=== PATIENT | female | born 1980 | race Caucasian/White ===

== ENCOUNTER 2017-10-10 22:27 | Inpatient (IN) ==
[2017-10-10 23:11] LABS: Basophils # 0.1 K/mcL (0.0-0.2); Basophils % 0.6 %; Eosinophils # 0.9 K/mcL (0.0-0.6); Eosinophils % 6.2 %; Hematocrit 47.1 % (35.3-44.9); Hemoglobin 15.9 g/dL (11.5-15.4); Immature Granulocytes % 0.2 % (0-4); Lymphocytes # 4.2 K/mcL (0.6-4.6); Lymphocytes % 30.1 %; Mean Corpuscular HGB Conc 33.8 g/dL (31.6-35.5); Mean Corpuscular Hemoglobin 30.8 pg (28.0-33.3); Mean Corpuscular Volume 91.1 fL (83.0-100.0); Mean Platelet Volume 9.9 fL (9.4-12.4); Monocytes # 0.8 K/mcL (0.0-1.3); Monocytes % 5.6 %; Platelet Count 495 K/mcL (140-400); Red Blood Count 5.17 M/mcL (3.82-4.97); Red Cell Distribution Width 14.2 % (11.5-14.5); Segmented Neutrophils % 57.3 %
[2017-10-10 23:11] LABS: Bilirubin,Urine Negative (Negative); Blood,Urine Negative (Negative); Clarity,Urine Cloudy (Clear); Color,Urine Yellow (Yellow); Glucose,Urine (UA) Normal (Normal); Ketones,Urine Negative (Negative); Leukocyte Esterase,Urine Trace (Negative); Nitrite,Urine Negative (Negative); Protein,Urine Trace mg/dL (Neg-Trace); Specific Gravity,Urine 1.025 (1.010-1.025); Urobilinogen,Urine Normal (Normal)
[2017-10-10 23:15] LABS: Bacteria,Urine None Seen per hpf (None-Few); Squamous Epithelial Cell,Urine Many per lpf (None-Few)
--- NOTE | 2017-10-10 23:16 | Emergency Department Note ---
Disposition Clinical Impression: Homicidal ideation, Amphetamine abuse, Suicidal ideation Disposition: Admitted As Inpatient Condition: Good General Adult HPI - General Chief complaint: ED Psychiatric Symptoms Stated complaint: SI/HI Time Seen by Provider: 10/10/17 22:42 Source: patient Limitations: no limitations Nursing Notes Reviewed: Yes Vital Signs Reviewed: Yes - History of Present Illness Pain Scale: 0 - Related Data Home Medications Medication Instructions Recorded Confirmed Citalopram Hydrobromide [Celexa] 40 mg PO DAILY 10/10/17 10/11/17 Previous Rx's Medication Instructions Recorded Amoxicillin [Amoxil] 750 mg PO Q8H 14 Days #7 tab.chew 10/14/17 Benzocaine/Menthol Gustavo [Cepacol 1 each PO Q2H PRN lozenge 10/14/17 Sore Throat Lozenge] Bisacodyl [Dulcolax] 10 mg PO DAILY PRN tablet 10/14/17 Divalproex (12 HR) [Depakote (12 250 mg PO BID tablet. 10/14/17 HR)] Loperamide [Imodium] 2 mg PO Q2HR PRN capsule 10/14/17 Loperamide [Imodium] 4 mg PO ONCE PRN capsule 10/14/17 MOM Conc [MILK OF MAGNESIA conc] 10 ml PO HS PRN ud.liq 10/14/17 Mag Hydrox/Al Hydrox/Simeth 30 ml PO Q4H PRN udc 10/14/17 [Maalox] Multivit/Ca/Min/Fe/FA [Thera M 1 tab PO DAILY tablet 10/14/17 Plus] Venlafaxine XR (24 HR) [Effexor XR] 75 mg PO DAILY cap.er.24h 10/14/17 hydrOXYzine pamoate [HydrOXYzine 25 mg PO TID PRN capsule 10/14/17 Pamoate] traZODone [TraZODone] 50 mg PO HS PRN tablet 10/14/17 Allergies Allergy/AdvReac Type Severity Reaction Status Date / Time No Known Allergies Allergy Verified 10/11/17 10:36 All systems ED: reviewed and negative except as stated. Past Medical History - Past Medical History Medical history: Reports: no medical history Psychiatric history: Reports: panic disorder - Social History Smoking Status: Current some day smoker Smokeless Tobacco Status: No Alcohol use: Reports: rarely Drug use: Reports: methamphetamine Physical Exam - General Limitations: no limitations General appearance: alert, in no apparent distress Course Vital Signs Temperature 98.7 F 10/10/17 22:29 Pulse Rate 83 10/10/17 22:29 Respiratory Rate 18 10/10/17 22:29 Blood Pressure 172/99 10/10/17 22:29 O2 Sat by Pulse Oximetry 97 10/10/17 22:29 Temperature 98.7 F 10/14/17 09:00 Pulse Rate 107 10/14/17 09:00 Respiratory Rate 16 10/14/17 09:00 Blood Pressure 114/83 10/14/17 09:00 O2 Sat by Pulse Oximetry 97 10/10/17 22:29 Oxygen Delivery Oxygen Delivery Room Air Medical Decision Making - Lab Data Result diagrams: 10/10/17 23:01 10/10/17 23:01 Lab Results 10/10/17 10/10/17 10/10/17 Range/Units 22:57 22:57 22:57 WBC (4.3-11.1) K/mcL RBC (3.82-4.97) M/mcL Hgb (11.5-15.4) g/dL Hct (35.3-44.9) % MCV (83.0-100.0) fL MCH (28.0-33.3) pg MCHC (31.6-35.5) g/dL RDW (11.5-14.5) % Plt Count (140-400) K/mcL MPV (9.4-12.4) fL Immature Gran % (0-4) % Seg Neutrophils % % Lymphocytes % % Monocytes % % Eosinophils % % Basophils % % Neutrophils # (1.6-8.9) K/mcL Lymphocytes # (0.6-4.6) K/mcL Monocytes # (0.0-1.3) K/mcL Eosinophils # (0.0-0.6) K/mcL Basophils # (0.0-0.2) K/mcL Sodium (136-145) mEq/L Potassium (3.5-5.1) mEq/L Chloride (98-107) mEq/L Carbon Dioxide (23-29) mEq/L BUN (6-20) mg/dL Creatinine (0.60-1.20) mg/dL Est GFR ( Amer) (> 60) Est GFR (Non-Af Amer) (> 60) BUN/Creatinine Ratio (6-26) Glucose (70-105) mg/dL Calculated Osmolality (280-300) Calcium (8.6-10.3) mg/dL Urine Color Yellow (Yellow) Urine Clarity Cloudy A (Clear) Urine pH 7.0 (5.0-8.0) pH Units Ur Specific [place] 1.025 (1.010-1.025) Urine Protein Trace (Neg-Trace) mg/dL Urine Glucose (UA) Normal (Normal) mg/dL Urine Ketones Negative (Negative) mg/dL Urine Blood Negative (Negative) Urine Nitrite Negative (Negative) Urine Bilirubin Negative (Negative) Urine Urobilinogen Normal (Normal) mg/dL Ur Leukocyte Esterase Trace H (Negative) Urine Microscopic RBC 0-3 (0-3) per hpf Urine Microscopic WBC 3-5 H (0-3) per hpf Ur Squamous Epith Cells Many H (None-Few) per lpf Urine Bacteria None Seen (None-Few) per hpf Ur Culture Indicated? NO. (NO) Urine Test Negative (Negative) Salicylates (15.0-30.0) mg/dL Urine Opiates Screen Negative (Bdmqoa=801) ng/mL Acetaminophen (10-20) mcg/mL Ur Barbiturates Screen Negative (Oaygxc=369) ng/mL Ur Phencyclidine Scrn Negative (Cutoff=25) ng/mL Ur Amphetamines Screen Positive H (Dgrwkl=4521) ng/mL U Benzodiazepines Scrn Negative (Naylao=325) ng/mL Urine Cocaine Screen Negative (Cutoff= 300) ng/mL U Marijuana (THC) Screen Negative (Cutoff = 50) ng/mL Ethyl Alcohol (Less than 10) mg/dL 10/10/17 10/10/17 Range/Units 23:01 23:01 WBC 13.9 H (4.3-11.1) K/mcL RBC 5.17 H (3.82-4.97) M/mcL Hgb 15.9 H (11.5-15.4) g/dL Hct 47.1 H (35.3-44.9) % MCV 91.1 (83.0-100.0) fL MCH 30.8 (28.0-33.3) pg MCHC 33.8 (31.6-35.5) g/dL RDW 14.2 (11.5-14.5) % Plt Count 495 H (140-400) K/mcL MPV 9.9 (9.4-12.4) fL Immature Gran % 0.2 (0-4) % Seg Neutrophils % 57.3 % Lymphocytes % 30.1 % Monocytes % 5.6 % Eosinophils % 6.2 % Basophils % 0.6 % Neutrophils # 8.0 (1.6-8.9) K/mcL Lymphocytes # 4.2 (0.6-4.6) K/mcL Monocytes # 0.8 (0.0-1.3) K/mcL Eosinophils # 0.9 H (0.0-0.6) K/mcL Basophils # 0.1 (0.0-0.2) K/mcL Sodium 135 L (136-145) mEq/L Potassium 4.1 (3.5-5.1) mEq/L Chloride 102 (98-107) mEq/L Carbon Dioxide 26 (23-29) mEq/L BUN 14 (6-20) mg/dL Creatinine 0.89 (0.60-1.20) mg/dL Est GFR ( Amer) > 60 (> 60) Est GFR (Non-Af Amer) > 60 (> 60) BUN/Creatinine Ratio 16 (6-26) Glucose 103 (70-105) mg/dL Calculated Osmolality 281 (280-300) Calcium 9.7 (8.6-10.3) mg/dL Urine Color (Yellow) Urine Clarity (Clear) Urine pH (5.0-8.0) pH Units Ur Specific [place] (1.010-1.025) Urine Protein (Neg-Trace) mg/dL Urine Glucose (UA) (Normal) mg/dL Urine Ketones (Negative) mg/dL Urine Blood (Negative) Urine Nitrite (Negative) Urine Bilirubin (Negative) Urine Urobilinogen (Normal) mg/dL Ur Leukocyte Esterase (Negative) Urine Microscopic RBC (0-3) per hpf Urine Microscopic WBC (0-3) per hpf Ur Squamous Epith Cells (None-Few) per lpf Urine Bacteria (None-Few) per hpf Ur Culture Indicated? (NO) Urine Test (Negative) Salicylates < 2.5 L (15.0-30.0) mg/dL Urine Opiates Screen (Dlwfda=144) ng/mL Acetaminophen < 10 L (10-20) mcg/mL Ur Barbiturates Screen (Wjhkqs=557) ng/mL Ur Phencyclidine Scrn (Cutoff=25) ng/mL Ur Amphetamines Screen (Ehyxod=4034) ng/mL U Benzodiazepines Scrn (Pqywzu=206) ng/mL Urine Cocaine Screen (Cutoff= 300) ng/mL U Marijuana (THC) Screen (Cutoff = 50) ng/mL Ethyl Alcohol < 10 (Less than 10) mg/dL Attestation Statement - Attestation Attestation: I examined this patient and my medical decision-making was reviewed with the Resident Physician. I agree with the documented findings, disposition and treatment plan as described except to the extent set forth below. Patient has plans for murdering a family member and then killing herself. We will obtain 18 consult after medical clearance.
[2017-10-10 23:19] LABS: Amphetamine Screen,Urine Positive ng/mL (Cutoff=1000); Barbiturate Screen,Urine Negative ng/mL (Cutoff=200); Benzodiazepines Screen,Urine Negative ng/mL (Cutoff=200); Cannabinoid Screen,Urine Negative ng/mL (Cutoff = 50); Cocaine Screen,Urine Negative ng/mL (Cutoff= 300); Opiate Screen,Urine Negative ng/mL (Cutoff=300); Phencyclidine Screen,Urine Negative ng/mL (Cutoff=25)
[2017-10-10 23:23] LABS: RBC,Urine 0-3 per hpf (0-3)
[2017-10-10] MEDS ORDERED: clonazePAM 0.5 MG TABLET PO ONE (23:25)
[2017-10-10 23:39] LABS: Acetaminophen < 10 mcg/mL (10-20); BUN/Creatinine Ratio 16 (6-26); Blood Urea Nitrogen 14 mg/dL (6-20); Calcium 9.7 mg/dL (8.6-10.3); Carbon Dioxide 26 mEq/L (23-29); Chloride 102 mEq/L (98-107); Ethanol < 10 mg/dL (Less than 10); Glucose 103 mg/dL (70-105); Osmolality,Calculated 281 (280-300); Potassium 4.1 mEq/L (3.5-5.1); Salicylate < 2.5 mg/dL (15.0-30.0); Sodium 135 mEq/L (136-145); eGFR For African Americans > 60 (> 60); eGFR For Non-African Americans > 60 (> 60)
[2017-10-10] MEDS ORDERED: Haloperidol Lactate 5 MG/ML VIAL IM ONE (23:56)
--- NOTE | 2017-10-11 00:24 | Emergency Department Note ---
Disposition Clinical Impression: Suicidal ideation, Homicidal ideation, Amphetamine abuse Disposition: Still a Patient Condition: Serious Referrals: NONE,PCP [Primary Care Provider] - Forms: ED Satisfaction Letter Time of Disposition: 00:25 Psych HPI - General Chief Complaint: ED Psychiatric Symptoms Stated Complaint: SI/HI Time Seen by Provider: 10/10/17 22:42 Source: patient Nursing Notes Reviewed: Yes Vital Signs Reviewed: Yes - History of Present Illness HPI Narrative: Mrs. Yee, 37-year-old female, presents from home with stepmother bedside for evaluation and mental health help. She admits to homicidality-killing her biological mother. She admits to suicidality-killing herself. Her plan is to obtain a firearm and then perform a murder suicide. She admits to taking ice today. No other illicit substance use. No EtOH. She has no other complaints. - Related Data Home Medications Medication Instructions Recorded Confirmed Citalopram Hydrobromide [Celexa] 40 mg PO DAILY 10/10/17 10/10/17 clonazePAM [Klonopin] 1 mg PO TID PRN 10/10/17 10/10/17 Allergies Allergy/AdvReac Type Severity Reaction Status Date / Time No Known Allergies Allergy Verified 10/10/17 22:32 All systems ED: reviewed and negative except as stated. Review of Systems: As Per HPI Past Medical History - Past Medical History Medical history: Reports: no medical history Psychiatric history: Reports: panic disorder - Social History Smoking Status: Current some day smoker Smokeless Tobacco Status: No Alcohol use: Reports: rarely Drug use: Reports: methamphetamine Physical Exam Vital Signs Reviewed General: Patient is alert, oriented, and in acute distress-she is tearful, rushed speech, has a worried look about her face. Head: atraumatic, normocephalic Eye: normal appearance, PERRL, EOMI, no scleral icterus, no conjunctival injection ENT: mucous membranes moist, normal external ear exam Neck: normal inspection, trachea midline, full ROM Chest: normal inspection, symmetric chest rise Respiratory: Good respiratory effort. Bilateral breath sounds are clear without wheezing, crackles, or rhonchi. Cardiovascular: Regular rate and rhythm. No clicks, rubs, gallops, or murmors. Normal heart sounds. Abdomen: Bowel sounds present normoactive x-4 quadrants. Abdomen is soft, nondistended, and nontender. No guarding or rebound. No organomegaly noted. Musculoskeletal: Spontaneously moving all extremities. Skin: warm, dry, intact. Neuro: Alert and oriented x4. Sensation light touch intact. Psych: Patient's affect is appropriate for situation. - General Limitations: no limitations General appearance: alert, in no apparent distress Course Course Narrative: Patient admits to suicidality and homicidality. She has a plan. She is a history of cutting. Patient reports that she was seen and evaluated by outside emergency department in the last several days and was discharged home; "it is nothing." She is worried about herself and is seeking help. She notes a 30 pound unintentional weight loss in the last several weeks but is unable to provide further clarification. Patient is medically cleared for evaluation by mental health services. Vital Signs Temperature 98.7 F 10/10/17 22:29 Pulse Rate 83 10/10/17 22:29 Respiratory Rate 18 10/10/17 22:29 Blood Pressure 172/99 10/10/17 22:29 O2 Sat by Pulse Oximetry 97 10/10/17 22:29 Temperature 98.7 F 10/10/17 22:29 Pulse Rate 83 10/10/17 22:29 Respiratory Rate 18 10/10/17 22:29 Blood Pressure 172/99 10/10/17 22:29 O2 Sat by Pulse Oximetry 97 10/10/17 22:29 Oxygen Delivery Oxygen Delivery Room Air Psych - Lab Data Result diagrams: 10/10/17 23:01 10/10/17 23:01 Lab Results 10/10/17 10/10/17 10/10/17 Range/Units 22:57 22:57 22:57 WBC (4.3-11.1) K/mcL RBC (3.82-4.97) M/mcL Hgb (11.5-15.4) g/dL Hct (35.3-44.9) % MCV (83.0-100.0) fL MCH (28.0-33.3) pg MCHC (31.6-35.5) g/dL RDW (11.5-14.5) % Plt Count (140-400) K/mcL MPV (9.4-12.4) fL Immature Gran % (0-4) % Seg Neutrophils % % Lymphocytes % % Monocytes % % Eosinophils % % Basophils % % Neutrophils # (1.6-8.9) K/mcL Lymphocytes # (0.6-4.6) K/mcL Monocytes # (0.0-1.3) K/mcL Eosinophils # (0.0-0.6) K/mcL Basophils # (0.0-0.2) K/mcL Sodium (136-145) mEq/L Potassium (3.5-5.1) mEq/L Chloride (98-107) mEq/L Carbon Dioxide (23-29) mEq/L BUN (6-20) mg/dL Creatinine (0.60-1.20) mg/dL Est GFR ( Amer) (> 60) Est GFR (Non-Af Amer) (> 60) BUN/Creatinine Ratio (6-26) Glucose (70-105) mg/dL Calculated Osmolality (280-300) Calcium (8.6-10.3) mg/dL Urine Color Yellow (Yellow) Urine Clarity Cloudy A (Clear) Urine pH 7.0 (5.0-8.0) pH Units Ur Specific [place] 1.025 (1.010-1.025) Urine Protein Trace (Neg-Trace) mg/dL Urine Glucose (UA) Normal (Normal) mg/dL Urine Ketones Negative (Negative) mg/dL Urine Blood Negative (Negative) Urine Nitrite Negative (Negative) Urine Bilirubin Negative (Negative) Urine Urobilinogen Normal (Normal) mg/dL Ur Leukocyte Esterase Trace H (Negative) Urine Microscopic RBC 0-3 (0-3) per hpf Urine Microscopic WBC 3-5 H (0-3) per hpf Ur Squamous Epith Cells Many H (None-Few) per lpf Urine Bacteria None Seen (None-Few) per hpf Ur Culture Indicated? NO. (NO) Urine Test Negative (Negative) Salicylates (15.0-30.0) mg/dL Urine Opiates Screen Negative (Irtjoc=374) ng/mL Acetaminophen (10-20) mcg/mL Ur Barbiturates Screen Negative (Vhzrvq=664) ng/mL Ur Phencyclidine Scrn Negative (Cutoff=25) ng/mL Ur Amphetamines Screen Positive H (Hfqpep=7211) ng/mL U Benzodiazepines Scrn Negative (Fgxjsh=696) ng/mL Urine Cocaine Screen Negative (Cutoff= 300) ng/mL U Marijuana (THC) Screen Negative (Cutoff = 50) ng/mL Ethyl Alcohol (Less than 10) mg/dL 10/10/17 10/10/17 Range/Units 23:01 23:01 WBC 13.9 H (4.3-11.1) K/mcL RBC 5.17 H (3.82-4.97) M/mcL Hgb 15.9 H (11.5-15.4) g/dL Hct 47.1 H (35.3-44.9) % MCV 91.1 (83.0-100.0) fL MCH 30.8 (28.0-33.3) pg MCHC 33.8 (31.6-35.5) g/dL RDW 14.2 (11.5-14.5) % Plt Count 495 H (140-400) K/mcL MPV 9.9 (9.4-12.4) fL Immature Gran % 0.2 (0-4) % Seg Neutrophils % 57.3 % Lymphocytes % 30.1 % Monocytes % 5.6 % Eosinophils % 6.2 % Basophils % 0.6 % Neutrophils # 8.0 (1.6-8.9) K/mcL Lymphocytes # 4.2 (0.6-4.6) K/mcL Monocytes # 0.8 (0.0-1.3) K/mcL Eosinophils # 0.9 H (0.0-0.6) K/mcL Basophils # 0.1 (0.0-0.2) K/mcL Sodium 135 L (136-145) mEq/L Potassium 4.1 (3.5-5.1) mEq/L Chloride 102 (98-107) mEq/L Carbon Dioxide 26 (23-29) mEq/L BUN 14 (6-20) mg/dL Creatinine 0.89 (0.60-1.20) mg/dL Est GFR ( Amer) > 60 (> 60) Est GFR (Non-Af Amer) > 60 (> 60) BUN/Creatinine Ratio 16 (6-26) Glucose 103 (70-105) mg/dL Calculated Osmolality 281 (280-300) Calcium 9.7 (8.6-10.3) mg/dL Urine Color (Yellow) Urine Clarity (Clear) Urine pH (5.0-8.0) pH Units Ur Specific [place] (1.010-1.025) Urine Protein (Neg-Trace) mg/dL Urine Glucose (UA) (Normal) mg/dL Urine Ketones (Negative) mg/dL Urine Blood (Negative) Urine Nitrite (Negative) Urine Bilirubin (Negative) Urine Urobilinogen (Normal) mg/dL Ur Leukocyte Esterase (Negative) Urine Microscopic RBC (0-3) per hpf Urine Microscopic WBC (0-3) per hpf Ur Squamous Epith Cells (None-Few) per lpf Urine Bacteria (None-Few) per hpf Ur Culture Indicated? (NO) Urine Test (Negative) Salicylates < 2.5 L (15.0-30.0) mg/dL Urine Opiates Screen (Xtstsr=922) ng/mL Acetaminophen < 10 L (10-20) mcg/mL Ur Barbiturates Screen (Sasgwd=062) ng/mL Ur Phencyclidine Scrn (Cutoff=25) ng/mL Ur Amphetamines Screen (Wckwfr=6187) ng/mL U Benzodiazepines Scrn (Elvmhx=019) ng/mL Urine Cocaine Screen (Cutoff= 300) ng/mL U Marijuana (THC) Screen (Cutoff = 50) ng/mL Ethyl Alcohol < 10 (Less than 10) mg/dL Psychiatric Medical Clearance - Medical Clearance Checklist Medical History: No Social History Section defined Current Vitals: Last Vital Signs Temp 98.7 F 10/10/17 22:29 Pulse 83 10/10/17 22:29 Resp 18 10/10/17 22:29 BP 172/99 10/10/17 22:29 Pulse Ox 97 10/10/17 22:29 Psychiatric Lab Panel: Drug Levels and Toxicity 10/10/17 10/10/17 22:57 23:01 Urine Opiates Screen Negative Acetaminophen < 10 L Ur Barbiturates Screen Negative Ur Phencyclidine Scrn Negative Ur Amphetamines Screen Positive H U Benzodiazepines Scrn Negative Urine Cocaine Screen Negative U Marijuana (THC) Screen Negative Ethyl Alcohol < 10 Abnormal Labs: Abnormal lab results WBC 13.9 K/mcL (4.3-11.1) H 10/10/17 23:01 RBC 5.17 M/mcL (3.82-4.97) H 10/10/17 23:01 Hgb 15.9 g/dL (11.5-15.4) H 10/10/17 23:01 Hct 47.1 % (35.3-44.9) H 10/10/17 23:01 Plt Count 495 K/mcL (140-400) H 10/10/17 23:01 Eosinophils # 0.9 K/mcL (0.0-0.6) H 10/10/17 23:01 Sodium 135 mEq/L (136-145) L 10/10/17 23:01 Urine Clarity Cloudy (Clear) A 10/10/17 22:57 Ur Leukocyte Esterase Trace (Negative) H 10/10/17 22:57 Urine Microscopic WBC 3-5 per hpf (0-3) H 10/10/17 22:57 Ur Squamous Epith Cells Many per lpf (None-Few) H 10/10/17 22:57 Salicylates < 2.5 mg/dL (15.0-30.0) L 10/10/17 23:01 Acetaminophen < 10 mcg/mL (10-20) L 10/10/17 23:01 Ur Amphetamines Screen Positive ng/mL (Penrcj=8844) H 10/10/17 22:57 Statement of Medical Clearance: I have evaluated the patient, reviewed diagnostic information, and certify that the patient's medical condition is sufficiently stable that transfer to the psychiatric unit does not pose a significant risk of deterioration.
[2017-10-11] MEDS ORDERED: Ziprasidone injection 20 MG/ML VIAL IM ONE (01:04)
[2017-10-11] MEDS ORDERED: Water for inj. (sterile) 10 ML IV ONE (01:09)
--- NOTE | 2017-10-11 01:18 | Emergency Department Note ---
Disposition Clinical Impression: Suicidal ideation, Homicidal ideation, Amphetamine abuse Disposition: Admitted As Inpatient Condition: Fair Referrals: NONE,PCP [Primary Care Provider] - Forms: ED Satisfaction Letter Time of Disposition: : Psych HPI - General Chief Complaint: ED Psychiatric Symptoms Stated Complaint: SI/HI Time Seen by Provider: 10/10/17 22:42 Source: patient - Related Data Home Medications Medication Instructions Recorded Confirmed Citalopram Hydrobromide [Celexa] 40 mg PO DAILY 10/10/17 10/10/17 clonazePAM [Klonopin] 1 mg PO TID PRN 10/10/17 10/10/17 Allergies Allergy/AdvReac Type Severity Reaction Status Date / Time No Known Allergies Allergy Verified 10/10/17 22:32 Past Medical History - Past Medical History Medical history: Reports: no medical history Psychiatric history: Reports: panic disorder - Social History Smoking Status: Current some day smoker Smokeless Tobacco Status: No Alcohol use: Reports: rarely Drug use: Reports: methamphetamine Physical Exam - General Limitations: no limitations General appearance: alert, in no apparent distress Course Course Narrative: This patient was signed out at shift change from Dr. Melendez and Dr. Rojo. Please refer to their notes for complete details of the history and physical examination. Patient presented with homicidal and suicidal ideation ideation and also substance abuse. Tox screen was positive for amphetamines. Patient has been medically cleared and at shift change is awaiting evaluation by the psychiatry service. Patient was evaluated by the [address] psychiatry service and is being admitted to the [address] psychiatric unit. She was given Geodon 10 mg IM at the request of 1A. Vital Signs Temperature 98.7 F 10/10/17 22:29 Pulse Rate 83 10/10/17 22:29 Respiratory Rate 18 10/10/17 22:29 Blood Pressure 172/99 10/10/17 22:29 O2 Sat by Pulse Oximetry 97 10/10/17 22:29 Temperature 98.7 F 10/10/17 22:29 Pulse Rate 83 10/10/17 22:29 Respiratory Rate 18 10/10/17 22:29 Blood Pressure 172/99 10/10/17 22:29 O2 Sat by Pulse Oximetry 97 10/10/17 22:29 Oxygen Delivery Oxygen Delivery Room Air Psych - Lab Data Result diagrams: 10/10/17 23:01 10/10/17 23:01 Lab Results 10/10/17 10/10/17 10/10/17 Range/Units 22:57 22:57 22:57 WBC (4.3-11.1) K/mcL RBC (3.82-4.97) M/mcL Hgb (11.5-15.4) g/dL Hct (35.3-44.9) % MCV (83.0-100.0) fL MCH (28.0-33.3) pg MCHC (31.6-35.5) g/dL RDW (11.5-14.5) % Plt Count (140-400) K/mcL MPV (9.4-12.4) fL Immature Gran % (0-4) % Seg Neutrophils % % Lymphocytes % % Monocytes % % Eosinophils % % Basophils % % Neutrophils # (1.6-8.9) K/mcL Lymphocytes # (0.6-4.6) K/mcL Monocytes # (0.0-1.3) K/mcL Eosinophils # (0.0-0.6) K/mcL Basophils # (0.0-0.2) K/mcL Sodium (136-145) mEq/L Potassium (3.5-5.1) mEq/L Chloride (98-107) mEq/L Carbon Dioxide (23-29) mEq/L BUN (6-20) mg/dL Creatinine (0.60-1.20) mg/dL Est GFR ( Amer) (> 60) Est GFR (Non-Af Amer) (> 60) BUN/Creatinine Ratio (6-26) Glucose (70-105) mg/dL Calculated Osmolality (280-300) Calcium (8.6-10.3) mg/dL Urine Color Yellow (Yellow) Urine Clarity Cloudy A (Clear) Urine pH 7.0 (5.0-8.0) pH Units Ur Specific [place] 1.025 (1.010-1.025) Urine Protein Trace (Neg-Trace) mg/dL Urine Glucose (UA) Normal (Normal) mg/dL Urine Ketones Negative (Negative) mg/dL Urine Blood Negative (Negative) Urine Nitrite Negative (Negative) Urine Bilirubin Negative (Negative) Urine Urobilinogen Normal (Normal) mg/dL Ur Leukocyte Esterase Trace H (Negative) Urine Microscopic RBC 0-3 (0-3) per hpf Urine Microscopic WBC 3-5 H (0-3) per hpf Ur Squamous Epith Cells Many H (None-Few) per lpf Urine Bacteria None Seen (None-Few) per hpf Ur Culture Indicated? NO. (NO) Urine Test Negative (Negative) Salicylates (15.0-30.0) mg/dL Urine Opiates Screen Negative (Urfcuk=829) ng/mL Acetaminophen (10-20) mcg/mL Ur Barbiturates Screen Negative (Mcsezm=965) ng/mL Ur Phencyclidine Scrn Negative (Cutoff=25) ng/mL Ur Amphetamines Screen Positive H (Cusamp=4221) ng/mL U Benzodiazepines Scrn Negative (Vwnqtw=199) ng/mL Urine Cocaine Screen Negative (Cutoff= 300) ng/mL U Marijuana (THC) Screen Negative (Cutoff = 50) ng/mL Ethyl Alcohol (Less than 10) mg/dL 10/10/17 10/10/17 Range/Units 23:01 23:01 WBC 13.9 H (4.3-11.1) K/mcL RBC 5.17 H (3.82-4.97) M/mcL Hgb 15.9 H (11.5-15.4) g/dL Hct 47.1 H (35.3-44.9) % MCV 91.1 (83.0-100.0) fL MCH 30.8 (28.0-33.3) pg MCHC 33.8 (31.6-35.5) g/dL RDW 14.2 (11.5-14.5) % Plt Count 495 H (140-400) K/mcL MPV 9.9 (9.4-12.4) fL Immature Gran % 0.2 (0-4) % Seg Neutrophils % 57.3 % Lymphocytes % 30.1 % Monocytes % 5.6 % Eosinophils % 6.2 % Basophils % 0.6 % Neutrophils # 8.0 (1.6-8.9) K/mcL Lymphocytes # 4.2 (0.6-4.6) K/mcL Monocytes # 0.8 (0.0-1.3) K/mcL Eosinophils # 0.9 H (0.0-0.6) K/mcL Basophils # 0.1 (0.0-0.2) K/mcL Sodium 135 L (136-145) mEq/L Potassium 4.1 (3.5-5.1) mEq/L Chloride 102 (98-107) mEq/L Carbon Dioxide 26 (23-29) mEq/L BUN 14 (6-20) mg/dL Creatinine 0.89 (0.60-1.20) mg/dL Est GFR ( Amer) > 60 (> 60) Est GFR (Non-Af Amer) > 60 (> 60) BUN/Creatinine Ratio 16 (6-26) Glucose 103 (70-105) mg/dL Calculated Osmolality 281 (280-300) Calcium 9.7 (8.6-10.3) mg/dL Urine Color (Yellow) Urine Clarity (Clear) Urine pH (5.0-8.0) pH Units Ur Specific [place] (1.010-1.025) Urine Protein (Neg-Trace) mg/dL Urine Glucose (UA) (Normal) mg/dL Urine Ketones (Negative) mg/dL Urine Blood (Negative) Urine Nitrite (Negative) Urine Bilirubin (Negative) Urine Urobilinogen (Normal) mg/dL Ur Leukocyte Esterase (Negative) Urine Microscopic RBC (0-3) per hpf Urine Microscopic WBC (0-3) per hpf Ur Squamous Epith Cells (None-Few) per lpf Urine Bacteria (None-Few) per hpf Ur Culture Indicated? (NO) Urine Test (Negative) Salicylates < 2.5 L (15.0-30.0) mg/dL Urine Opiates Screen (Tcgttj=360) ng/mL Acetaminophen < 10 L (10-20) mcg/mL Ur Barbiturates Screen (Eljthi=147) ng/mL Ur Phencyclidine Scrn (Cutoff=25) ng/mL Ur Amphetamines Screen (Soctvc=1686) ng/mL U Benzodiazepines Scrn (Dpcbhy=015) ng/mL Urine Cocaine Screen (Cutoff= 300) ng/mL U Marijuana (THC) Screen (Cutoff = 50) ng/mL Ethyl Alcohol < 10 (Less than 10) mg/dL Psychiatric Medical Clearance - Medical Clearance Checklist Medical History: Suicidal ideation (Acute) Homicidal ideation (Acute) Amphetamine abuse (Acute) No Social History Section defined Current Vitals: Last Vital Signs Temp 98.7 F 10/10/17 22:29 Pulse 83 10/10/17 22:29 Resp 18 10/10/17 22:29 BP 172/99 10/10/17 22:29 Pulse Ox 97 10/10/17 22:29 Psychiatric Lab Panel: Drug Levels and Toxicity 10/10/17 10/10/17 22:57 23:01 Urine Opiates Screen Negative Acetaminophen < 10 L Ur Barbiturates Screen Negative Ur Phencyclidine Scrn Negative Ur Amphetamines Screen Positive H U Benzodiazepines Scrn Negative Urine Cocaine Screen Negative U Marijuana (THC) Screen Negative Ethyl Alcohol < 10 Abnormal Labs: Abnormal lab results WBC 13.9 K/mcL (4.3-11.1) H 10/10/17 23:01 RBC 5.17 M/mcL (3.82-4.97) H 10/10/17 23:01 Hgb 15.9 g/dL (11.5-15.4) H 10/10/17 23:01 Hct 47.1 % (35.3-44.9) H 10/10/17 23:01 Plt Count 495 K/mcL (140-400) H 10/10/17 23:01 Eosinophils # 0.9 K/mcL (0.0-0.6) H 10/10/17 23:01 Sodium 135 mEq/L (136-145) L 10/10/17 23:01 Urine Clarity Cloudy (Clear) A 10/10/17 22:57 Ur Leukocyte Esterase Trace (Negative) H 10/10/17 22:57 Urine Microscopic WBC 3-5 per hpf (0-3) H 10/10/17 22:57 Ur Squamous Epith Cells Many per lpf (None-Few) H 10/10/17 22:57 Salicylates < 2.5 mg/dL (15.0-30.0) L 10/10/17 23:01 Acetaminophen < 10 mcg/mL (10-20) L 10/10/17 23:01 Ur Amphetamines Screen Positive ng/mL ([id number]=[id number]) H 10/10/17 22:57 Statement of Medical Clearance: I have evaluated the patient, reviewed diagnostic information, and certify that the patient's medical condition is sufficiently stable that transfer to the psychiatric unit does not pose a significant risk of deterioration.
[2017-10-11] MEDS ORDERED: Mag Hydrox/Al Hydrox/Simeth 30 ML UDC PO PRN (01:38)
[2017-10-11] MEDS ORDERED: Acetaminophen 325 MG TABLET PO PRN (01:38)
[2017-10-11] MEDS ORDERED: Haloperidol Lactate 5 MG/ML VIAL IM PRN (01:38)
[2017-10-11] MEDS ORDERED: *HR* LORazepam 1 MG TABLET PO PRN (01:38)
[2017-10-11] MEDS ORDERED: *HR* LORazepam 2 MG/ML VIAL IM PRN (01:38)
[2017-10-11] MEDS ORDERED: Ibuprofen 400 MG TABLET PO PRN (02:06)
[2017-10-11] MEDS: Nicotine 14 MG PATCH.TD24 TD SCH (10:32)
[2017-10-11] MEDS: hydrOXYzine pamoate 25 MG CAPSULE PO PRN ×2 (11:33→22:41)
[2017-10-11] MEDS: Venlafaxine XR (24 HR) 75 MG CAP.ER.24H PO SCH (11:38)
--- NOTE | 2017-10-11 11:38 | Psychiatry History & Physical ---
Date of Encounter: 10/11/17 Time of Encounter: 11:00 History of Present Illness Patient Stated Chief Complaint: Homicidal ideation and suicidal ideation Medicare Admission Attestation: For traditional Medicare patients the provided hospital inpatient services are reasonable and necessary and in the case of services not specified as inpatient -only under 42 CFR 419.22 (n), that they are appropriately provided as inpatient services in accordance 42 CFR 412.3. For Critical [facility] the patient may reasonably be expected to be discharged or transferred to a hospital within 96 hours after admission to the Critical [facility] Hospital. Admitted From: Emergency Dept History of Present Illness: Ms. Yee is a 37 year old female admitted from the emergency department for suicidal or homicidal ideation. Also was intoxicated was amphetamine and marijuana. Patient had history of noncompliance with treatment or appointments also she had a long history of substance abuse and legal issues. Patient was irritable and agitated and required medication to calm her down. She is angry at the mother and voiced intention that she wants her or to kill. Patient was agitated and her assessment could not be completed because of her agitation and uncooperativeness. Patient claims she had outpatient mental health's treatment none on the records and this is her only psychiatric admission to this hospital. Patient admits to using drugs including marijuana and amphetamine. She is stressed out by losing custody of her children. UDS was positive for amphetamine and THC. Past Med Surg Social Fam HX - Past Medical History Medical history: no medical history, seizures - Past Psychiatric History Psychiatric history: Reports: other (Unknown) - Social History Smoking Status: Current some day smoker Smokeless Tobacco Status: No Alcohol use: rarely Drug use: methamphetamine, prescription drug abuse Medications & Allergies Citalopram Hydrobromide [Celexa] 40 mg PO DAILY 10/10/17 [History] Amoxicillin 875 mg PO DAILY 10/11/17 [History] 3 Allergy/AdvReac Type Severity Reaction Status Date / Time No Known Allergies Allergy Verified 10/11/17 10:36 Review of Systems Psychiatric: Reports: depression, suicidal ideation, homicidal ideation, irritability, mood swings Exam - HEENT Head exam IM: Present: atraumatic Eye exam IM: Present: EOMI, normal appearance, PERRL ENT exam IM: Present: normal exam - Neurological Neurological exam: Present: CN II-XII intact - Respiratory Respiratory exam IM: Present: CTAB - GI/Abdominal GI/Abdominal exam IM: Present: normal bowel sounds, soft. Absent: tenderness - Extremities Extremities exam IM: Present: full ROM - Skin Skin exam IM: Present: dry, warm - Constitutional Vitals: Temp Pulse Resp BP Pulse Ox 98.0 F 74 14 89/58 97 10/11/17 09:00 10/11/17 09:00 10/11/17 09:00 10/11/17 09:00 10/10/17 22:29 General appearance: age & developmentally appropriate, well-groomed, well- nourished - Musculoskeletal Gait: normal Station: relaxed Strength & Tone: normal for patient - Psychiatric Patient Orientation: Yes Person, Yes Time, Yes Place Level of alertness: Alert Behavior: agitated, hostile, restless, uncooperative, impulsive, talkative, dramatic Psychomotor activity: Agitated Eye Contact: Fleeting Contact Mood Description: Angry, Labile, Irritable Affect description: congruent with mood, labile, dysphoric Speech Volume: Normal Speech pattern: normal rate, normal rhythm, normal tone, fluent, spontaneous, inappropriate to situation, excessive, pressured Language & Vocabulary: consistent with education Thought Process: Linear, Goal Oriented, Tangential, Flight of Ideas, Disorganized, Racing, Evasive Thought Content: Yes Suicidal ideation, No Homicidal ideation, No Overt delusions Perceptual Disturbances: No Auditory hallucinations, No Visual hallucinations Attention Span Ability: Capable of Focused Attention Memory Description: Grossly Intact Patient Reliability: Reliable Historian Fund of knowledge: Yes abstraction ability, Yes average, Yes aware of current events Intelligence Estimate: Average Judgment: Limited Insight: Partial Results - Labs Labs: Laboratory Last Values WBC 13.9 K/mcL (4.3-11.1) H 10/10/17 23:01 RBC 5.17 M/mcL (3.82-4.97) H 10/10/17 23:01 Hgb 15.9 g/dL (11.5-15.4) H 10/10/17 23:01 Hct 47.1 % (35.3-44.9) H 10/10/17 23:01 MCV 91.1 fL (83.0-100.0) 10/10/17 23:01 MCH 30.8 pg (28.0-33.3) 10/10/17 23:01 MCHC 33.8 g/dL (31.6-35.5) 10/10/17 23: RDW 14.2 % (11.5-14.5) 10/10/17 23: Plt Count 495 K/mcL (140-400) H 10/10/17 23: MPV 9.9 fL (9.4-12.4) 10/10/17 23: Immature Gran % 0.2 % (0-4) 10/10/17 23: Seg Neutrophils % 57.3 % 10/10/17 23: Lymphocytes % 30.1 % 10/10/17 23: Monocytes % 5.6 % 10/10/17 23: Eosinophils % 6.2 % 10/10/17 23: Basophils % 0.6 % 10/10/17: Neutrophils # 8.0 K/mcL (1.6-8.9) 10/10/17 23: Lymphocytes # 4.2 K/mcL (0.6-4.6) 10/10/17: Monocytes # 0.8 K/mcL (0.0-1.3) 10/10/17 23: Eosinophils # 0.9 K/mcL (0.0-0.6) H 10/10/17 23: Basophils # 0.1 K/mcL (0.0-0.2) 10/10/17: Sodium 135 mEq/L (136-145) L 10/10/17: Potassium 4.1 mEq/L (3.5-5.1) 10/10/17 23: Chloride 102 mEq/L (98-107) 10/10/17 23: Carbon Dioxide 26 mEq/L (23-29) 10/10/17 23: BUN 14 mg/dL (6-20) 10/10/17 23: Creatinine 0.89 mg/dL (0.60-1.20) 10/10/17 23: Est GFR ( Amer) > 60 (> 60) 10/10/17: Est GFR (Non-Af Amer) > 60 (> 60) 10/10/17 23: BUN/Creatinine Ratio 16 (6-26) 10/10/17: Glucose 103 mg/dL (70-105) 10/10/17 23: Calculated Osmolality 281 (280-300) 10/10/17 23: Calcium 9.7 mg/dL (8.6-10.3) 10/10/17 23:01 Urine Color Yellow (Yellow) 10/10/17: Urine Clarity Cloudy (Clear) A 10/10/17: Urine pH 7.0 pH Units (5.0-8.0) 10/10/17: Ur Specific [place] 1.025 (1.010-1.025) 10/10/17: Urine Protein Trace mg/dL (Neg-Trace) 10/10/17: Urine Glucose (UA) Normal mg/dL (Normal) 10/10/17: Urine Ketones Negative mg/dL (Negative) 10/10/17: Urine Blood Negative (Negative) 10/10/17: Urine Nitrite Negative (Negative) 10/10/17: Urine Bilirubin Negative (Negative) 10/10/17: Urine Urobilinogen Normal mg/dL (Normal) 10/10/17: Ur Leukocyte Esterase Trace (Negative) H 10/10/17:57 Urine Microscopic RBC 0-3 per hpf (0-3) 10/10/17:57 Urine Microscopic WBC 3-5 per hpf (0-3) H 10/10/17:57 Ur Squamous Epith Cells Many per lpf (None-Few) H 10/10/17:57 Urine Bacteria None Seen per hpf (None-Few) 10/10/17:57 Ur Culture Indicated? NO. (NO) 10/10/17: Urine Test Negative (Negative) 10/10/17: Salicylates < 2.5 mg/dL (15.0-30.0) L 10/10/17 23:01 Urine Opiates Screen Negative ng/mL (Dhpgwg=250) 10/10/17: Acetaminophen < 10 mcg/mL (10-20) L 10/10/17 23: Ur Barbiturates Screen Negative ng/mL (Udrzhl=382) 10/10/17: Ur Phencyclidine Scrn Negative ng/mL (Cutoff=25) 10/10/17: Ur Amphetamines Screen Positive ng/mL (Uxdgqq=3294) H 04/12/18 22:57 U Benzodiazepines Scrn Negative ng/mL (Qnhjty=344) 10/10/17 22:57 Urine Cocaine Screen Negative ng/mL (Cutoff= 300) 10/10/17 22:57 U Marijuana (THC) Screen Negative ng/mL (Cutoff = 50) 10/10/17 22:57 Ethyl Alcohol < 10 mg/dL (Less than 10) 10/10/17 23:01 Assessment and Plan (1) Unspecified mood [affective] disorder Current visit: Yes Status: Acute Plan: Admit inpatient for safety and stabilization, Close observation, Suicide Precautions per unit protocol, Encourage participation in unit milieu, Group Therapy, Monitor sleep, Monitor appetite Additional Plan: See orders Risks, benefits, side effects, alternatives discussed w/pt: Yes Patient agreeable to treatment: Yes Estimated Length of Stay (Days): 7 (2) Homicidal ideation Current visit: Yes Status: Acute Plan: Admit inpatient for safety and stabilization, Close observation, Suicide Precautions per unit protocol, Encourage participation in unit milieu, Group Therapy, Monitor sleep, Monitor appetite Risks, benefits, side effects, alternatives discussed w/pt: Yes Patient agreeable to treatment: Yes
[2017-10-11] MEDS: Amoxicillin 250 MG CHEWABLE TABLET PO SCH ×2 (15:27→22:09)
[2017-10-11] MEDS: *HR* LORazepam 0.5 MG TABLET PO PRN ×2 (15:28→21:54)
[2017-10-11] MEDS: Divalproex (12 HR) 250 MG TABLET PO SCH (21:54)
[2017-10-11] MEDS: MOM Conc 10 ML UD.LIQ PO PRN (21:54)
[2017-10-11] MEDS: traZODone 50 MG TABLET PO PRN (22:41)
[2017-10-12] MEDS: Divalproex (12 HR) 250 MG TABLET PO SCH ×2 (09:12→21:15)
[2017-10-12] MEDS: Nicotine 14 MG PATCH.TD24 TD SCH (09:12)
[2017-10-12] MEDS: MOM Conc 10 ML UD.LIQ PO PRN (09:12)
[2017-10-12] MEDS: Amoxicillin 250 MG CHEWABLE TABLET PO SCH ×3 (09:13→21:19)
[2017-10-12] MEDS: Venlafaxine XR (24 HR) 75 MG CAP.ER.24H PO SCH (09:14)
[2017-10-12] MEDS: *HR* LORazepam 0.5 MG TABLET PO PRN ×2 (11:46→22:01)
[2017-10-12] MEDS: hydrOXYzine pamoate 25 MG CAPSULE PO PRN (13:07)
--- NOTE | 2017-10-12 13:21 | Psychiatry Progress Note ---
Date of Encounter: 10/12/17 Time of Encounter: 12:45 Subjective Interval history: Patient seen for follow-up with her nurse. She reports improved sleep and appetite. She is medication compliant. She continue she continued to show manic symptoms including pressured speech, loud, irritable, argumentative. She is medication seeking and was advised that no benzodiazepine or opiates would be prescribed for her. She was educated about her medication and what to expect she was educated about substance abuse and became defensive. But she stayed in control. Review of Systems Psychiatric: Reports: depression, suicidal ideation, homicidal ideation, irritability, mood swings Results - Vital Signs Vital Signs: Temp Pulse Resp BP Pulse Ox 97.2 F L 99 16 104/72 97 10/12/17 09:53 10/12/17 09:53 10/12/17 09:53 10/12/17 09:53 10/10/17 22:29 Assessment and Plan (1) Unspecified mood [affective] disorder Current visit: Yes Status: Acute Risks, benefits, side effects, alternatives discussed w/pt: Yes Patient agreeable to treatment: Yes (2) Homicidal ideation Current visit: Yes Status: Acute Risks, benefits, side effects, alternatives discussed w/pt: Yes Patient agreeable to treatment: Yes Consult Discharge Plan - Plan Referrals: NONE,PCP [Primary Care Provider] - Psychiatry Exam - Constitutional Vitals: Temp Pulse Resp BP Pulse Ox 97.2 F L 99 16 104/72 97 10/12/17 09:53 10/12/17 09:53 10/12/17 09:53 10/12/17 09:53 10/10/17 22:29 General appearance: age & developmentally appropriate, well-groomed, well- nourished, thin - Musculoskeletal Gait: normal Station: relaxed Strength & Tone: normal for patient - Psychiatric Patient Orientation: Yes Person, Yes Time, Yes Place Level of alertness: Alert Behavior: calm, cooperative, restless, distractible, impulsive, talkative Psychomotor activity: Increased Eye Contact: Fleeting Contact Mood Description: Euthymic/stable, Labile, Irritable Affect description: congruent with mood, labile Speech Volume: Normal, Loud Speech pattern: normal rate, normal rhythm, normal tone, fluent, spontaneous, inappropriate to situation, excessive, pressured, repetetive Language & Vocabulary: consistent with education Thought Process: Linear, Goal Oriented Thought Content: No Suicidal ideation, No Homicidal ideation, No Overt delusions Perceptual Disturbances: No Auditory hallucinations, No Visual hallucinations Attention Span Ability: Unable to Focus Memory Description: Grossly Intact Patient Reliability: Questionable Historian Fund of knowledge: Yes abstraction ability, Yes aware of current events Intelligence Estimate: Average Judgment: Limited Insight: Partial
[2017-10-13] MEDS: Amoxicillin 250 MG CHEWABLE TABLET PO SCH ×3 (07:17→21:27)
[2017-10-13] MEDS: Nicotine 14 MG PATCH.TD24 TD SCH (11:12)
[2017-10-13] MEDS: Multivit/Ca/Min/Fe/FA 1 TAB TABLET PO SCH (11:13)
[2017-10-13] MEDS: Venlafaxine XR (24 HR) 75 MG CAP.ER.24H PO SCH (11:13)
[2017-10-13] MEDS: Divalproex (12 HR) 250 MG TABLET PO SCH ×2 (11:13→20:55)
[2017-10-13] MEDS: *HR* LORazepam 0.5 MG TABLET PO PRN ×2 (11:13→19:13)
--- NOTE | 2017-10-13 13:26 | Psychiatry Progress Note ---
Date of Encounter: 10/13/17 Time of Encounter: 13:00 Subjective Interval history: Patient seen for follow-up. Case discussed was nursing staff. Staff report patient is medication compliant, less hyperactive, her sleep and appetite are improving. No irritability or agitation. Denies suicidal or homicidal ideation. Participate in groups and activities. Speech is non-pressured and organized. Review of Systems Psychiatric: Reports: depression, suicidal ideation, homicidal ideation, irritability, mood swings Results - Vital Signs Vital Signs: Temp Pulse Resp BP Pulse Ox 97.6 F 91 16 109/81 97 10/13/17 09:00 10/13/17 09:00 10/13/17 09:00 10/13/17 09:00 10/10/17 22:29 Assessment and Plan (1) Unspecified mood [affective] disorder Current visit: Yes Status: Acute Plan: Continue hospitalization, Close observation, Suicide Precautions per unit protocol, Encourage participation in unit milieu, Group Therapy, Monitor sleep, Monitor appetite Risks, benefits, side effects, alternatives discussed w/pt: Yes Patient agreeable to treatment: Yes (2) Homicidal ideation Current visit: Yes Status: Acute Plan: Continue hospitalization, Close observation, Suicide Precautions per unit protocol, Encourage participation in unit milieu, Group Therapy, Monitor sleep, Monitor appetite Risks, benefits, side effects, alternatives discussed w/pt: Yes Patient agreeable to treatment: Yes Consult Discharge Plan - Plan Referrals: NONE,PCP [Primary Care Provider] - Psychiatry Exam - Constitutional Vitals: Temp Pulse Resp BP Pulse Ox 97.6 F 91 16 109/81 97 10/13/17 09:00 10/13/17 09:00 10/13/17 09:00 10/13/17 09:00 10/10/17 22:29 General appearance: age & developmentally appropriate, well-groomed, well- nourished, thin - Musculoskeletal Gait: normal Station: relaxed Strength & Tone: normal for patient - Psychiatric Patient Orientation: Yes Person, Yes Time, Yes Place Level of alertness: Alert Behavior: calm, cooperative, talkative Psychomotor activity: Normal Eye Contact: Maintains Eye Contact Mood Description: Euthymic/stable Affect description: congruent with mood, labile Speech Volume: Normal Speech pattern: normal rate, normal rhythm, normal tone, fluent, spontaneous Language & Vocabulary: consistent with education Thought Process: Linear, Goal Oriented Thought Content: No Suicidal ideation, No Homicidal ideation, No Overt delusions Perceptual Disturbances: No Auditory hallucinations, No Visual hallucinations Attention Span Ability: Capable of Focused Attention Memory Description: Grossly Intact Patient Reliability: Reliable Historian Fund of knowledge: Yes abstraction ability, Yes aware of current events Intelligence Estimate: Average Judgment: Limited Insight: Partial
[2017-10-13] MEDS: hydrOXYzine pamoate 25 MG CAPSULE PO PRN ×2 (14:46→21:00)
[2017-10-13] MEDS: traZODone 50 MG TABLET PO PRN (20:56)
[2017-10-14] MEDS: Multivit/Ca/Min/Fe/FA 1 TAB TABLET PO SCH (08:39)
[2017-10-14] MEDS: Venlafaxine XR (24 HR) 75 MG CAP.ER.24H PO SCH (08:39)
[2017-10-14] MEDS: Divalproex (12 HR) 250 MG TABLET PO SCH (08:40)
[2017-10-14] MEDS: Nicotine 14 MG PATCH.TD24 TD SCH (08:40)
[2017-10-14] MEDS: Amoxicillin 250 MG CHEWABLE TABLET PO SCH ×2 (08:40→14:27)
[2017-10-14] MEDS: *HR* LORazepam 0.5 MG TABLET PO PRN (12:22)
[2017-10-14] MEDS: hydrOXYzine pamoate 25 MG CAPSULE PO PRN (14:27)
--- NOTE | 2017-10-14 15:21 | Psychiatry Progress Note ---
Date of Encounter: 10/14/17 Time of Encounter: 15:00 Subjective Interval history: Patient reports that she has h/o subatance abuse. She reports non-compliance with treamtent. She was on the phone with the [facility]p and with [facility]. She is anxious and irritable on the unit. She denies current SI or HI, but is anxious and hostile. patient no denies SI and HI, I confronted her with the chart documation. But she reports that she is followed at [facility] by Dr. Marshall, She has been out of counselling. Review of Systems Psychiatric: Reports: depression, abnormal sleep pattern, suicidal ideation, homicidal ideation, visual hallucinations, irritability, mood swings, panic attacks Results - Vital Signs Vital Signs: Temp Pulse Resp BP Pulse Ox 98.6 F 114 16 117/80 97 10/13/17 21:00 10/13/17 21:00 10/13/17 21:00 10/13/17 21:00 10/10/17 22:29 Assessment and Plan (1) Bipolar disorder, current episode manic without psychotic features Current visit: Yes Status: Acute Plan: Continue hospitalization, Close observation, Monitor sleep Risks, benefits, side effects, alternatives discussed w/pt: Yes Patient agreeable to treatment: Yes (2) Patient's noncompliance with other medical treatment and regimen Current visit: Yes Status: Acute Plan: Continue hospitalization, Close observation, Family/Supportive other meeting Risks, benefits, side effects, alternatives discussed w/pt: Yes Patient agreeable to treatment: Yes (3) Amphetamine abuse Current visit: Yes Status: Acute Plan: Continue hospitalization, Close observation, Family/Supportive other meeting Risks, benefits, side effects, alternatives discussed w/pt: Yes Patient agreeable to treatment: Yes (4) Homicidal ideation Current visit: Yes Status: Acute Plan: Continue hospitalization, Secure weapons Risks, benefits, side effects, alternatives discussed w/pt: Yes Patient agreeable to treatment: Yes (5) Suicidal ideation Current visit: Yes Status: Acute Plan: Secure weapons Risks, benefits, side effects, alternatives discussed w/ pt: Yes Patient agreeable to treatment: Yes Consult Discharge Plan - Plan Referrals: NONE,PCP [Primary Care Provider] - Psychiatry Exam - Constitutional Vitals: Temp Pulse Resp BP Pulse Ox 98.6 F 114 16 117/80 97 10/13/17 21:00 10/13/17 21:00 10/13/17 21:00 10/13/17 21:00 10/10/17 22:29 General appearance: age & developmentally appropriate, disheveled, thin - Musculoskeletal Gait: brisk Station: other Strength & Tone: normal for patient - Psychiatric Patient Orientation: Yes Person, Yes Time, Yes Place, Yes Circumstance Level of alertness: Alert Behavior: tearful, agitated, impulsive, dramatic Psychomotor activity: Increased Eye Contact: Minimal Contact Mood Description: Anxious, Labile, Irritable Affect description: labile, dysphoric Speech pattern: pressured Language & Vocabulary: limited Thought Process: Flight of Ideas Thought Content: Yes Suicidal ideation, Yes Homicidal ideation, Yes Phobic Perceptual Disturbances: Yes Reacting to internal stimuli Attention Span Ability: Unable to Sustain Attention Memory Description: Immediate Impaired, Recent Impaired, Remote Intact Patient Reliability: Not Reliable Historian Fund of knowledge: Yes average Intelligence Estimate: Average Judgment: Limited Insight: Minimal
--- NOTE | 2017-10-14 16:06 | Discharge Summary ---
Date of Encounter: 10/14/17 Time of Encounter: 16:00 Diagnosis - Discharge Diagnosis (1) Bipolar disorder, current episode manic without psychotic features Status: Acute (2) Patient's noncompliance with other medical treatment and regimen Status: Acute (3) Amphetamine abuse Status: Acute (4) Homicidal ideation Status: Acute (5) Suicidal ideation Status: Acute Medications - Discharge Medications Prescriptions: Amoxicillin [Amoxil] 750 mg PO Q8H 14 Days #7 tab.chew Citalopram Hydrobromide [Celexa] 40 mg PO DAILY 10/10/17 [History] Amoxicillin [Amoxil] 750 mg PO Q8H 14 Days #7 tab.chew 10/14/17 [Rx] Benzocaine/Menthol Gustavo [Cepacol Sore Throat Lozenge] 1 each PO Q2H PRN lozenge 10/14/17 [Rx] Bisacodyl [Dulcolax] 10 mg PO DAILY PRN tablet 10/14/17 [Rx] Divalproex (12 HR) [Depakote (12 HR)] 250 mg PO BID tablet.dr 10/14/17 [Rx] Loperamide [Imodium] 2 mg PO Q2HR PRN capsule 10/14/17 [Rx] Loperamide [Imodium] 4 mg PO ONCE PRN capsule 10/14/17 [Rx] MOM Conc [MILK OF MAGNESIA conc] 10 ml PO HS PRN ud.liq 10/14/17 [Rx] Mag Hydrox/Al Hydrox/Simeth [Maalox] 30 ml PO Q4H PRN udc 10/14/17 [Rx] Multivit/Ca/Min/Fe/FA [Thera M Plus] 1 tab PO DAILY tablet 10/14/17 [Rx] Venlafaxine XR (24 HR) [Effexor XR] 75 mg PO DAILY cap.er.24h 10/14/17 [Rx] hydrOXYzine pamoate [HydrOXYzine Pamoate] 25 mg PO TID PRN capsule 10/14/17 [Rx ] traZODone [TraZODone] 50 mg PO HS PRN tablet 10/14/17 [Rx] 3 Allergy/AdvReac Type Severity Reaction Status Date / Time No Known Allergies Allergy Verified 10/11/17 10:36 Provider Date of admission: 04/13/18 01:29 Primary care physician: PCP NONE Discharging clinician: Yoel Palomares Psychiatry Exam - Constitutional Vitals: Temp Pulse Resp BP Pulse Ox 98.6 F 114 16 117/80 97 10/13/17 21:00 10/13/17 21:00 10/13/17 21:00 10/13/17 21:00 10/10/17 22:29 General appearance: age & developmentally appropriate, well-groomed, well- nourished - Musculoskeletal Gait: normal Station: relaxed Strength & Tone: normal for patient - Psychiatric Patient Orientation: Yes Person, Yes Time, Yes Place Level of alertness: Alert Behavior: calm, cooperative Psychomotor activity: Normal Eye Contact: Maintains Eye Contact Mood Description: Euthymic/stable Affect description: congruent with mood, full range Speech Volume: Normal Speech pattern: normal rate, normal rhythm, normal tone, fluent, spontaneous Language & Vocabulary: consistent with education Thought Process: Linear, Goal Oriented Thought Content: No Suicidal ideation, No Homicidal ideation, No Overt delusions Perceptual Disturbances: No Auditory hallucinations, No Visual hallucinations Attention Span Ability: Capable of Focused Attention Memory Description: Grossly Intact Patient Reliability: Reliable Historian Fund of knowledge: Yes abstraction ability, Yes aware of current events Intelligence Estimate: Average Judgment: Limited Insight: Partial Hospital Course Hospital course: Ms. Yee is a 37 year old female The patient had not been advised that she could go to the [facility]. She had an appointment the next day with [facility]. The patient is looking into possibility of changing to [facility]. She would like to be discharged today. The patient immediately brightened and reported no suicidal ideation or homicidal ideation. The patient reported that she would try to taper off benzodiazepines as prescribed by her doctor. She reported that she would be adherent to her treatment she reported that she would be compliant with rules of the senior living. Arrangements were made for supervised transportation. The patient will continue on antibiotic for the next 7 days she had not inner ear infection which she was still worried about Time spent discussing smoking cessation with patient: 3 to 10 minutes Does patient wish to continue nicotine replacement upon disc: No - Time Spent with Patient Total time spent providing and/or coordinating discharge services: Less than 30 minutes Assessment and Plan - Patient/Caregiver Discharge Instructions Diet: regular diet - Follow up Plan Follow up with: Eloy Hooker [facility] [Outside] - 10/15/17 2:00 pm (The above appointment is with Dr. Marshall for outpatient psychiatric assessment and medication management services. Therapy follow-up will be scheduled at conclusion of physician appointment in the [place] [facility] staff will transfer case.) Overall status at discharge: Stable Disposition: Home, Self-Care Quality - Multiple Antipsychotics Patient discharged on 2 or more antipsychotic medications: No Procedures - Procedures Procedures: Medication Management, Crisis Stabilization, Supportive Therapy, Group Therapy, Psychoeducational Therapy
[2017-10-14 16:14] VITALS: BP 114/83
== END 2017-10-14 17:15 | disposition home or self-care (01) | DRG 753 ==
LOC: EMEROO 22:27 → SUATTDRO 10-11 01:29 → 1ANU 10-11 01:29
PROVIDERS: ADMIT Psychiatry & Neurology Psychiatry; ATTEND Psychiatry & Neurology Forensic Psychiatry